=== PATIENT | male | born 1960 | race Caucasian/White ===

== ENCOUNTER → 2017-06-26 | Outpatient (CLI) | payer MEDICAID ==
[~2017-06-26] MED LIST: AMLODIPINE BESY10 M1 PO; BENAZEPRIL HYDR20 MG PO; CIPRO 500MG TA500 MG PO; CLONAZEPAM0.5 M3 PO; HYDROCHLOROTHIA25 M1 PO; IBUPROFEN800 MG PO; IMIPRAMINE HCL25 MG PO; KEFLEX 500MG.500 MG PO; VICODIN 5/500 T1 TAB PO
--- NOTE | 2017-06-27 05:57 | RADIOLOGY REPORT PS360 ---
EXAM: LUMBAR SPINE 5 VIEWS HISTORY: JUSTIN LOW BACK PAIN ORDERING PHYSICIAN: Russ Dang MD PATIENT AGE: 56 years COMPARISON: None FINDINGS: Normal alignment. No fracture or dislocation. No lytic or blastic change. No significant degenerative change. The disc spaces are preserved. There is a cluster of calcifications in the left mid abdominal region consistent with renal stones the largest of which is 5 mm. Incidental vascular calcifications are present. IMPRESSION: 1. Negative lumbar spine. 2. Left nephrolithiasis
== END ==
LOC: RAD 08:25
DX: M54.5 Low back pain (principal)